=== PATIENT | male | born 1940 | race Caucasian/White ===

== ENCOUNTER 2016-06-01 19:40 | Emergency (ER) | payer OTHER ==
[~2016-06-01] VITALS: Ht 182.9 cm; Wt 90.1 kg
[~2016-06-01 19:40] MED LIST: ALBUTEROL SULF8.5 GM IH; ASCORBIC ACID500 M1 PO; ASPIRIN500 MG PO; CLINDAMYCIN HC300 MG PO; Coumadin,Jantoven PO; FEOSOL325 MG PO; FLOMAX0.4 MG PO; Feosol PO; GLUCOSAMINE &1 EACH PO; KEFLEX500 MG PO; LOTRISONE15 GM TP; MAGNESIUM100 MG PO; MEDROL DOSEPAK4 MG PO; PERCOCET 5/31 TABLET PO; Percocet 5/325,Endoc PO; TOVIAZ4 MG PO; TRAMADOL HCL50 MG PO; ULTRACET1 TABLET PO; VALIUM2 MG PO; VICODIN 5-3001 EACH PO; WARFARIN SODIUM1 MG PO; XARELTO15 MG PO; ZITHROMAX Z-PA250 MG PO
[2016-06-01] MEDS ORDERED: KEFLEX500 MG PO (20:41)
[2016-06-01] MEDS ORDERED: BACTRIM,SEPT1 TABLET PO (20:41)
[2016-06-01 21:04] VITALS: BP 120/73
[2016-06-01 22:04] LABS: APPEARANCE CLOUDY-ORANGE; MONONUCLEAR WBC'S 1 %; POLYNUCLEAR WBC'S 99 % (0-25); RED CELL COUNT 19000 /MM^3 (0-1); SYNOVIAL FLUID EOSINOPHILS 0 % (0-25); WHITE CELL COUNT 2850 /MM^3 (0-200.0)
[2016-06-02 06:47] LABS: CRYSTALS NO CRYSTALS SEEN
== END 2016-06-01 21:06 | disposition home or self-care (01) ==
LOC: EME 19:40
PROVIDERS: Physician Assistant
PROC: 0M943ZZ Drainage of Left Elbow Bursa and Ligament, Percutaneous Approach (ICD-10-PCS; principal; 2016-06-01)
DX: M70.22 Olecranon bursitis, left elbow (principal); L03.114 Cellulitis of left upper limb; Z86.711 Personal history of pulmonary embolism; Z96.642 Presence of left artificial hip joint
CPT/HCPCS: 87070; 87075; 87077; 87147; 87186; 87205; 89051; 99281; 99284; J0696

== ENCOUNTER 2016-07-17 06:51 | Inpatient (IN) | payer OTHER ==
[~2016-07-17] VITALS: Ht 182.9 cm; Wt 80.0 kg
[2016-07-17] VITALS (10 sets, daily range): BP systolic 128–180; BP diastolic 56–90
[~2016-07-17 06:51] MED LIST changes: +BACTRIM,SEPT1 TABLET PO
[2016-07-17 07:10] LABS: EOSINOPHIL (%) 3.1 % (0-5); EOSINOPHIL COUNT 0.2 K/uL (0-0.3); IMMATURE GRANULOCYTE (%) 4.1 % (0.0-0.7); IMMATURE GRANULOCYTE COUNT 0.2 K/uL; INSTRUMENT ABS NEUTROPHIL CT 2.8 K/uL; LYMPHOCYTE COUNT 0.8 K/uL (1.0-2.8); MCH 28.1 PG (29.0-34.0); MCHC 31.9 G/DL (30.0-36.0); MCV 88.2 FL (86-99); MEAN PLAT.VOLUME 9.9 uM^3 (9.0-12.4); MONOCYTE COUNT 0.9 K/uL (0-0.8); NEUTROPHIL (%) 58.4 % (45-76); NEUTROPHIL COUNT 2.8 K/uL (1.8-6.4); PLATELET COUNT 272 K/uL (156-360); RBC DIS.WIDTH-CV 14.1 % (11.8-14.6); RBC DIS.WIDTH-SD 45.1 % (39-53); RED BLOOD COUNT 5.44 M/uL (4.00-5.50); WHITE BLOOD COUNT 4.8 K/uL (4.1-10.2)
[2016-07-17 07:20] LABS: INTER. NORMALIZED RATIO 1.2; PROTHROMBIN TIME 12.5 (9.2-11.2); PTT 34.1 (25-32)
[2016-07-17 07:34] LABS: ANION GAP 8 MEQ/L (2-14); CHLORIDE 104 MEQ/L (99-109); POTASSIUM 3.8 MEQ/L (3.7-5.4); SAMPLE HEMOLYSIS CHECK 0; SAMPLE ICTERIC CHECK 0; SAMPLE LIPEMIA CHECK 0; SODIUM 138 MEQ/L (136-147); TOTAL BILIRUBIN 0.6 MG/DL (0.0-1.0)
[2016-07-17 07:40] LABS: ALKALINE PHOSPHATASE 60 IU/L (3-129); GFR ESTIMATE (CALCULATED) > 59 mL/min/; GLUCOSE 94 mg/dL (70-99); UREA NITROGEN (BUN) 12 mg/dL (9-23)
[2016-07-17 07:43] LABS: TROP-I INTERPRETATION POSITIVE; TROPONIN-I 0.62 ng/mL (0.0-0.30)
[2016-07-17 10:29] LABS: METH RESISTANT S AUREUS PCR NEGATIVE (NEGATIVE)
[2016-07-17 10:34] LABS: PROBE CHECK PASS; SPECIMEN PROCESSING CONTROL PASS
[2016-07-17] MEDS ORDERED: XARELTO20 MG PO (13:02)
[2016-07-17] MEDS ORDERED: FLOMAX0.4 MG PO (13:03)
[2016-07-17] MEDS ORDERED: PRILOSEC20 MG PO (13:03)
[2016-07-17 13:10] LABS: TROP-I INTERPRETATION POSITIVE; TROPONIN-I 2.79 ng/mL (0.0-0.30)
[2016-07-17 19:38] LABS: FASTING STATUS NONFASTING
[2016-07-17 19:54] LABS: CREATINE KINASE 582 IU/L (1-294); HDL CHOLESTEROL 48 MG/DL (Desirable>=40); LDL CHOLESTEROL 91 mg/dL (Desirable<100); NON-HDL CHOLESTEROL 114 mg/dL (Desirable<160); POTASSIUM 3.7 MEQ/L (3.7-5.4); TOTAL CHOLESTEROL 162 mg/dL (Desirable<200); TOTAL CK 582 IU/L (1-294); TRIGLYCERIDES 117 MG/DL (Normal: <150)
[2016-07-17 20:04] LABS: TROP-I INTERPRETATION POSITIVE; TROPONIN-I 6.67 ng/mL (0.0-0.30)
[2016-07-17 20:20] LABS: CK-MB 95.2 ng/mL (0.0-4.9)
[2016-07-18] VITALS (17 sets, daily range): BP systolic 106–147; BP diastolic 62–79
[2016-07-18 07:11] LABS: CREATINE KINASE 452 IU/L (1-294); TOTAL CK 452 IU/L (1-294)
[2016-07-18 07:13] LABS: ANION GAP 5 MEQ/L (2-14); CHLORIDE 106 MEQ/L (99-109); GFR ESTIMATE (CALCULATED) > 59 mL/min/; GLUCOSE 95 mg/dL (70-99); POTASSIUM 4.4 MEQ/L (3.7-5.4); SAMPLE HEMOLYSIS CHECK 0; SAMPLE ICTERIC CHECK 0; SAMPLE LIPEMIA CHECK 0; SODIUM 136 MEQ/L (136-147); UREA NITROGEN (BUN) 9 mg/dL (9-23)
[2016-07-18 07:34] LABS: TROP-I INTERPRETATION POSITIVE; TROPONIN-I 11.37 ng/mL (0.0-0.30)
[2016-07-18 07:40] LABS: CK-MB 68.1 ng/mL (0.0-4.9)
[2016-07-18 09:01] LABS: EOSINOPHIL (%) 2.5 % (0-5); EOSINOPHIL COUNT 0.2 K/uL (0-0.3); HEMATOCRIT 47.2 % (38.0-50.0); IMMATURE GRANULOCYTE (%) 1.7 % (0.0-0.7); IMMATURE GRANULOCYTE COUNT 0.1 K/uL; INSTRUMENT ABS NEUTROPHIL CT 4.8 K/uL; LYMPHOCYTE COUNT 0.8 K/uL (1.0-2.8); MCHC 31.4 G/DL (30.0-36.0); MCV 89.2 FL (86-99); MEAN PLAT.VOLUME 10.3 uM^3 (9.0-12.4); MONOCYTE (%) 16.8 % (3-12); MONOCYTE COUNT 1.2 K/uL (0-0.8); NEUTROPHIL (%) 67.9 % (45-76); NEUTROPHIL COUNT 4.8 K/uL (1.8-6.4); PLATELET COUNT 250 K/uL (156-360); RBC DIS.WIDTH-CV 14.5 % (11.8-14.6); RBC DIS.WIDTH-SD 46.7 % (39-53); RED BLOOD COUNT 5.29 M/uL (4.00-5.50)
[2016-07-18 09:02] LABS: WHITE BLOOD COUNT 7.1 K/uL (4.1-10.2)
[2016-07-19] VITALS: BP 127/71
[2016-07-19 04:00] VITALS: BP 143/64
[2016-07-19 06:45] LABS: Estimated Average Glucose 100 mg/dL (70-123); HEMOGLOBIN A1c (GLYCOHEMOGLOB) 5.1 % HGB (Below 5.7)
[2016-07-19 11:00] VITALS: BP 143/75
[2016-07-19] MEDS ORDERED: NITROSTAT0.4 MG SL (12:13)
[2016-07-19] MEDS ORDERED: ATORVASTATIN CA40 MG PO (12:13)
[2016-07-19] MEDS ORDERED: LOSARTAN POTASS25 MG PO (12:13)
[2016-07-19] MEDS ORDERED: CLOPIDOGREL75 MG PO (12:13)
[2016-07-19] MEDS ORDERED: ASPIR-LOW81 MG PO (12:13)
[2016-07-19] MEDS ORDERED: LOPRESSOR25 MG PO (12:13)
[2016-07-19 13:30] VITALS: BP 141/79
== END 2016-07-19 14:29 | disposition home or self-care (01) | DRG 249 ==
LOC: EME → EDBD 06:51 → CATH 07:43 → EME 07:43 → 4WEST 08:30
PROVIDERS: Emergency Medicine; Internal Medicine Interventional Cardiology
PROC: 02703DZ Dilation of Coronary Artery, One Artery with Intraluminal Device, Percutaneous Approach (ICD-10-PCS; principal; 2016-07-17)
PROC: B215YZZ Fluoroscopy of Left Heart using Other Contrast (ICD-10-PCS; principal; 2016-07-17)
PROC: B211YZZ Fluoroscopy of Multiple Coronary Arteries using Other Contrast (ICD-10-PCS; principal; 2016-07-17)
PROC: 4A023N7 Measurement of Cardiac Sampling and Pressure, Left Heart, Percutaneous Approach (ICD-10-PCS; principal; 2016-07-17)
DX: I21.29 ST elevation (STEMI) myocardial infarction involving other sites (principal); I25.10 Atherosclerotic heart disease of native coronary artery without angina pectoris; K21.9 Gastro-esophageal reflux disease without esophagitis; Z96.642 Presence of left artificial hip joint; Z86.711 Personal history of pulmonary embolism; Z86.718 Personal history of other venous thrombosis and embolism; Z79.01 Long term (current) use of anticoagulants; M19.90 Unspecified osteoarthritis, unspecified site; N40.0 Benign prostatic hyperplasia without lower urinary tract symptoms; I34.0 Nonrheumatic mitral (valve) insufficiency
CPT/HCPCS: 71010; 80048; 80053; 80061; 82550; 82550 91; 82553; 83036; 84132 91; 84484; 85025; 85347; 85610; 85730; 87641; 88305; 93005; 99281; 99285; C1769; C1874; C1887; J0461; J1644; J2250; J2270; J3010; J7030

== ENCOUNTER 2016-08-02 17:37 | Emergency (ER) | payer OTHER ==
[~2016-08-02] VITALS: Ht 182.9 cm; Wt 84.3 kg
[~2016-08-02 17:37] MED LIST changes: +ASPIR-LOW81 MG PO; +ATORVASTATIN CA40 MG PO; +CLOPIDOGREL75 MG PO; +LOPRESSOR25 MG PO; +LOSARTAN POTASS25 MG PO; +NITROSTAT0.4 MG SL; +PRILOSEC20 MG PO; +XARELTO20 MG PO
[2016-08-02 18:52] LABS: HEMATOCRIT 47.6 % (38.0-50.0); MCH 28.2 PG (29.0-34.0); MCHC 32.1 G/DL (30.0-36.0); MCV 87.8 FL (86-99); MEAN PLAT.VOLUME 10.1 uM^3 (9.0-12.4); PLATELET COUNT 271 K/uL (156-360); RBC DIS.WIDTH-CV 13.9 % (11.8-14.6); RBC DIS.WIDTH-SD 44.7 % (39-53); RED BLOOD COUNT 5.42 M/uL (4.00-5.50); WHITE BLOOD COUNT 6.3 K/uL (4.1-10.2)
[2016-08-02 18:57] LABS: CHLORIDE 104 mEq/L (99-109); INTER. NORMALIZED RATIO 1.3; POTASSIUM 4.5 mEq/L (3.7-5.4); PROTHROMBIN TIME 12.8 (9.2-11.2); SODIUM 139 mEq/L (136-147)
[2016-08-02 18:58] LABS: MAGNESIUM 2.1 mg/dL (1.3-2.7)
[2016-08-02 18:59] LABS: GLUCOSE 83 mg/dL (70-99)
[2016-08-02 19:01] LABS: ANION GAP 10 MEQ/L (2-14)
[2016-08-02 19:03] LABS: GFR ESTIMATE (CALCULATED) > 59 mL/min/
[2016-08-02 19:04] LABS: UREA NITROGEN (BUN) 16 mg/dL (9-23)
[2016-08-02 19:08] LABS: TROP-I INTERPRETATION NEGATIVE; TROPONIN-I 0.03 ng/mL (0.0-0.30)
[2016-08-02 21:08] VITALS: BP 143/76
== END 2016-08-02 21:11 | disposition left against medical advice (07) ==
LOC: EME 17:37
PROVIDERS: Emergency Medicine
DX: R07.89 Other chest pain (principal); Z86.711 Personal history of pulmonary embolism; Z79.01 Long term (current) use of anticoagulants; K21.9 Gastro-esophageal reflux disease without esophagitis; Z96.642 Presence of left artificial hip joint; Z95.5 Presence of coronary angioplasty implant and graft
CPT/HCPCS: 70450; 80048; 83735; 84484; 85027; 85610; 93005; 99281; 99284

== ENCOUNTER 2016-11-16 06:04 | Observation (INO) | payer OTHER ==
[~2016-11-16] VITALS: Ht 182.9 cm; Wt 86.8 kg
[2016-11-16 08:00] LABS: EOSINOPHIL (%) 2.1 % (0-5); EOSINOPHIL COUNT 0.1 K/uL (0-0.3); HEMATOCRIT 47.6 % (38.0-50.0); IMMATURE GRANULOCYTE (%) 4.4 % (0.0-0.7); IMMATURE GRANULOCYTE COUNT 0.3 K/uL; INSTRUMENT ABS NEUTROPHIL CT 3.7 K/uL; MCH 28.3 PG (29.0-34.0); MCHC 32.4 G/DL (30.0-36.0); MCV 87.3 FL (86-99); MEAN PLAT.VOLUME 9.8 uM^3 (9.0-12.4); MONOCYTE (%) 17.2 % (3-12); MONOCYTE COUNT 1.1 K/uL (0-0.8); NEUTROPHIL (%) 60.7 % (45-76); NEUTROPHIL COUNT 3.7 K/uL (1.8-6.4); PLATELET COUNT 236 K/uL (156-360); RBC DIS.WIDTH-CV 13.1 % (11.8-14.6); RBC DIS.WIDTH-SD 41.7 % (39-53); RED BLOOD COUNT 5.45 M/uL (4.00-5.50); WHITE BLOOD COUNT 6.2 K/uL (4.1-10.2)
[2016-11-16 08:06] LABS: INTER. NORMALIZED RATIO 1.4; PROTHROMBIN TIME 15.5 SEC (10.2-12.9)
[2016-11-16 08:08] LABS: PTT 43.7 SEC (25-37)
[2016-11-16 08:33] LABS: ANION GAP 9 MEQ/L (2-14); CHLORIDE 103 MEQ/L (99-109); GFR ESTIMATE (CALCULATED) > 59 mL/min/; GLUCOSE 94 mg/dL (70-99); POTASSIUM 4.2 MEQ/L (3.7-5.4); SAMPLE HEMOLYSIS CHECK 0; SAMPLE ICTERIC CHECK 0; SAMPLE LIPEMIA CHECK 0; SODIUM 139 MEQ/L (136-147); TROP-I INTERPRETATION NEGATIVE; TROPONIN-I 0.01 ng/mL (0.0-0.30); UREA NITROGEN (BUN) 14 mg/dL (9-23)
[2016-11-16] MEDS ORDERED: CYANOCOBALAM1000 MCG PO (10:04)
[2016-11-16] MEDS ORDERED: FLONASE SENSIM9.9 ML BOTH NARES (10:05)
[2016-11-16] MEDS ORDERED: PROTONIX40 MG PO (10:07)
[2016-11-16] MEDS ORDERED: ZOLOFT50 MG PO (10:08)
[2016-11-16] MEDS ORDERED: VICKS VAPOINHA1 EACH NS ×2 (10:14)
[2016-11-16 11:17] VITALS: BP 171/86
[2016-11-16 15:07] LABS: TROP-I INTERPRETATION NEGATIVE; TROPONIN-I 0.01 ng/mL (0.0-0.30)
[2016-11-16 16:06] VITALS: BP 130/64
[2016-11-16 20:00] VITALS: BP 157/75
[2016-11-16 20:47] LABS: TROP-I INTERPRETATION NEGATIVE; TROPONIN-I 0.01 ng/mL (0.0-0.30)
[2016-11-16 23:50] VITALS: BP 155/72
[2016-11-17 03:55] VITALS: BP 134/65
[2016-11-17 08:15] VITALS: BP 133/78
== END 2016-11-17 12:00 | disposition home or self-care (01) ==
LOC: EME 06:04 → EDOF 09:23 → 5WEST 09:23 → EDOF 09:23 → ENRESERV 09:25 → 5WEST 10:44 → ENPENDDIS 11-17 → 5WEST 11-17 12:00
PROVIDERS: Emergency Medicine; Internal Medicine
DX: R07.89 Other chest pain (principal); Z86.711 Personal history of pulmonary embolism; I25.10 Atherosclerotic heart disease of native coronary artery without angina pectoris; Z95.5 Presence of coronary angioplasty implant and graft; I25.2 Old myocardial infarction; Z79.01 Long term (current) use of anticoagulants; M19.90 Unspecified osteoarthritis, unspecified site; N40.0 Benign prostatic hyperplasia without lower urinary tract symptoms; Z96.642 Presence of left artificial hip joint
CPT/HCPCS: 71010; 80048; 84484; 85025; 85610; 85730; 93005; 99281; 99284; G0378

== ENCOUNTER 2017-02-21 11:22 | Emergency (ER) | payer OTHER ==
[~2017-02-21] VITALS: Ht 182.9 cm; Wt 87.9 kg
[~2017-02-21 11:22] MED LIST changes: +CYANOCOBALAM1000 MCG PO; +FLONASE SENSIM9.9 ML BOTH NARES; +PROTONIX40 MG PO; +VICKS VAPOINHA1 EACH NS; +ZOLOFT50 MG PO
[2017-02-21 14:10] VITALS: BP 142/75
== END 2017-02-21 14:20 | disposition home or self-care (01) ==
LOC: EME 11:22
DX: G50.8 Other disorders of trigeminal nerve (principal); R20.0 Anesthesia of skin; I10 Essential (primary) hypertension; K21.9 Gastro-esophageal reflux disease without esophagitis; N40.0 Benign prostatic hyperplasia without lower urinary tract symptoms; M19.90 Unspecified osteoarthritis, unspecified site; I25.2 Old myocardial infarction; Z95.5 Presence of coronary angioplasty implant and graft; Z86.711 Personal history of pulmonary embolism; Z96.642 Presence of left artificial hip joint; Z79.01 Long term (current) use of anticoagulants
CPT/HCPCS: 99281; 99284

== ENCOUNTER 2017-03-24 05:26 | Emergency (ER) | payer OTHER ==
[~2017-03-24] VITALS: Ht 182.9 cm; Wt 89.4 kg
[2017-03-24 07:04] LABS: HEMATOCRIT 47.4 % (38.0-50.0); HEMOGLOBIN 15.1 G/DL (12.5-16.6); MCH 27.2 PG (29.0-34.0); MCHC 31.9 G/DL (30.0-36.0); MCV 85.3 FL (86-99); PLATELET COUNT 282 K/uL (156-360); RBC DIS.WIDTH-SD 40.1 % (39-53); RED BLOOD COUNT 5.56 M/uL (4.00-5.50); WHITE BLOOD COUNT 6.6 K/uL (4.1-10.2)
[2017-03-24 07:06] LABS: INTER. NORMALIZED RATIO 1.8
[2017-03-24 07:08] LABS: PTT 43.5 SEC (25-37)
[2017-03-24 07:33] LABS: CHLORIDE 107 MEQ/L (99-109); GFR ESTIMATE (CALCULATED) > 59 mL/min/ (58.99-99999); GLUCOSE 88 mg/dL (70-99); POTASSIUM 4.1 MEQ/L (3.7-5.4); SODIUM 139 MEQ/L (136-147); UREA NITROGEN (BUN) 17 mg/dL (9-23)
[2017-03-24 10:22] VITALS: BP 142/71
== END 2017-03-24 10:22 | disposition home or self-care (01) ==
LOC: EME 05:26
PROVIDERS: Emergency Medicine
DX: M79.604 Pain in right leg (principal); K21.9 Gastro-esophageal reflux disease without esophagitis; N40.0 Benign prostatic hyperplasia without lower urinary tract symptoms; M19.90 Unspecified osteoarthritis, unspecified site; Z79.01 Long term (current) use of anticoagulants; Z86.711 Personal history of pulmonary embolism; Z96.642 Presence of left artificial hip joint
CPT/HCPCS: 80048; 85027; 85610; 85730; 93971; 99281; 99284

== ENCOUNTER 2017-05-14 01:42 | Emergency (ER) | payer OTHER ==
[~2017-05-14] VITALS: Ht 182.9 cm; Wt 91.9 kg
[2017-05-14 06:30] VITALS: BP 153/84
== END 2017-05-14 06:30 | disposition home or self-care (01) ==
LOC: EME → EDBD 01:42 → EME 06:30
PROVIDERS: Emergency Medicine
DX: R20.8 Other disturbances of skin sensation (principal); R22.1 Localized swelling, mass and lump, neck; K21.9 Gastro-esophageal reflux disease without esophagitis; N40.0 Benign prostatic hyperplasia without lower urinary tract symptoms; Z86.711 Personal history of pulmonary embolism; Z79.01 Long term (current) use of anticoagulants; Z96.642 Presence of left artificial hip joint
CPT/HCPCS: 70450; 70551; 82948; 99281; 99284

== ENCOUNTER 2017-08-03 08:47 | Day surgery (SDC) | payer OTHER ==
[~2017-08-03] VITALS: Ht 182.9 cm; Wt 85.7 kg
[2017-08-03 09:03] VITALS: BP 189/87
[2017-08-03] MEDS ORDERED: NORCO 5/3251 TABLET PO (10:16)
[2017-08-03 10:55] VITALS: BP 157/81
== END 2017-08-03 12:00 | disposition home or self-care (01) ==
LOC: SDC 08:47
PROC: 0JB50ZZ Excision of Left Neck Subcutaneous Tissue and Fascia, Open Approach (ICD-10-PCS; principal; 2017-08-03)
DX: D17.0 Benign lipomatous neoplasm of skin and subcutaneous tissue of head, face and neck (principal); K21.9 Gastro-esophageal reflux disease without esophagitis; I25.10 Atherosclerotic heart disease of native coronary artery without angina pectoris; I35.8 Other nonrheumatic aortic valve disorders; I25.2 Old myocardial infarction; Z86.711 Personal history of pulmonary embolism; Z79.82 Long term (current) use of aspirin
CPT/HCPCS: 87641; 88304; J2250; J3010; S0020; S0074

== ENCOUNTER 2017-10-13 11:53 | Emergency (ER) | payer OTHER ==
[~2017-10-13] VITALS: Ht 182.9 cm; Wt 88.3 kg
[~2017-10-13 11:53] MED LIST changes: +NORCO 5/3251 TABLET PO
[2017-10-13 13:19] LABS: BASOPHIL (%) 0.2 % (0-1); EOSINOPHIL (%) 0.7 % (0-5); EOSINOPHIL COUNT 0.1 K/uL (0-0.3); HEMATOCRIT 49.6 % (38.0-50.0); HEMOGLOBIN 15.9 G/DL (12.5-16.6); IMMATURE GRANULOCYTE (%) 1.3 % (0.0-0.7); LYMPHOCYTE COUNT 0.6 K/uL (1.0-2.8); MCH 27.2 PG (29.0-34.0); MCHC 32.1 G/DL (30.0-36.0); MCV 84.8 FL (86-99); MONOCYTE COUNT 1.2 K/uL (0-0.8); NEUTROPHIL (%) 85.8 % (45-76); NEUTROPHIL COUNT 13.1 K/uL (1.8-6.4); PLATELET COUNT 376 K/uL (156-360); RBC DIS.WIDTH-SD 46.5 % (39-53); RED BLOOD COUNT 5.85 M/uL (4.00-5.50); WHITE BLOOD COUNT 15.2 K/uL (4.1-10.2)
[2017-10-13 13:20] LABS: INTER. NORMALIZED RATIO 1.3
[2017-10-13 13:23] LABS: ALBUMIN 4.4 g/dL (3.2-4.8); CHLORIDE 105 mEq/L (99-109); POTASSIUM 4.7 mEq/L (3.7-5.4); PTT 35.3 SEC (25-37); SODIUM 137 mEq/L (136-147)
[2017-10-13 13:25] LABS: GLUCOSE 97 mg/dL (70-99); TOTAL PROTEIN 7.5 g/dL (6.4-8.3)
[2017-10-13 13:27] LABS: TOTAL BILIRUBIN 1.1 mg/dL (0.0-1.0)
[2017-10-13 13:29] LABS: ALKALINE PHOSPHATASE 105 IU/L (3-129); CREATININE 1.1 mg/dL (0.6-1.3); GFR ESTIMATE (CALCULATED) > 59 mL/min/ (58.99-99999)
[2017-10-13 13:30] LABS: UREA NITROGEN (BUN) 14 mg/dL (9-23)
[2017-10-13 13:31] LABS: AST (GOT) 44 IU/L (2-34)
[2017-10-13 13:32] LABS: ALT (GPT) 35 IU/L (3-49)
[2017-10-13 13:35] LABS: TROP-I INTERPRETATION NEGATIVE; TROPONIN-I < 0.01 ng/mL (0.0-0.30)
[2017-10-13 17:23] VITALS: BP 115/62
== END 2017-10-13 17:25 | disposition home or self-care (01) ==
LOC: EME 11:53
PROVIDERS: Nurse Practitioner Family
DX: K59.00 Constipation, unspecified (principal); R11.2 Nausea with vomiting, unspecified; N28.89 Other specified disorders of kidney and ureter; K21.9 Gastro-esophageal reflux disease without esophagitis; I25.2 Old myocardial infarction; N40.0 Benign prostatic hyperplasia without lower urinary tract symptoms; Z86.711 Personal history of pulmonary embolism; Z79.01 Long term (current) use of anticoagulants; Z96.642 Presence of left artificial hip joint
CPT/HCPCS: 74177; 80053; 83605; 84484; 85025; 85610; 85730; 86850; 86900; 86901; 93005; 99281; 99285; J2405; J3010; J7030